=== PATIENT | female | born 2000 | race Two or more races ===

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

== ENCOUNTER 2023-04-04 12:45 | Emergency (ER) | payer MEDICAID ==
[~2023-04-04] VITALS: Ht 160 cm; Wt 87.1 kg
[2023-04-04] MEDS ORDERED: GUAI-671 PO (13:09)
[2023-04-04 13:14] VITALS: BP 121/68; O2SAT 98
== END 2023-04-04 13:21 | disposition home or self-care (01) ==
LOC: ER 12:45
DX: J20.9 Acute bronchitis, unspecified (principal); Z79.899 Other long term (current) drug therapy
CPT/HCPCS: A4663